=== PATIENT | female | born 1965 | race Caucasian/White ===

== ENCOUNTER 2022-02-26 07:21 | Day surgery (SDC) | payer OTHER ==
[2022-02-24 14:48] LABS: COVID AG,FIA SOURCE NASAL SWAB
[~2022-02-26] VITALS: Ht 154.9 cm; Wt 122.1 kg
[~2022-02-26 07:21] MED LIST: AMLO5TAB66 PO; ATOR40TA71 PO; CLOP75TA32 PO; FAMO20 PO; FURO80TA3 PO; GABA800T9 PO; INSU200I4 SQ; LEVO50TA11 PO; LISI10TA24 PO; METF-446 PO; METO-391 PO; SEMA2.4P SQ; SERT-440 PO; SODIUM CHLORIDE 0.9% 1,000 ML IV ONE
[2022-02-26 08:51] LABS: GLUCOMETER DEV NAME(LOC) SDS.; GLUCOSE,POINT OF CARE 73 MG/DL (70-110)
[2022-02-26] MEDS ORDERED: DEXTROSE 5%-LACTATED RINGERS 1,000 ML IV ONE (09:15)
[2022-02-26 10:21] LABS: GLUCOMETER DEV NAME(LOC) SDS.; GLUCOSE,POINT OF CARE 141 MG/DL (70-110)
[2022-02-26] MEDS ORDERED: PROPOFOL 1% 20 ML VIAL IVP ONE (12:00)
[2022-02-26] MEDS ORDERED: LIDOCAINE/PF 2% 5 ML VIAL IM ONE (12:00)
[2022-02-26] MEDS ORDERED: OXYGEN THERAPY IH SCH (20:00)
== END 2022-02-26 11:00 | disposition home or self-care (01) ==
LOC: SURGERY 07:21
PROVIDERS: ATTEND Specialist
DX: R19.5 Other fecal abnormalities (principal); E11.9 Type 2 diabetes mellitus without complications; I10 Essential (primary) hypertension; Z79.82 Long term (current) use of aspirin; Z86.010 Personal history of colon polyps; Z79.899 Other long term (current) drug therapy; Z20.822 Contact with and (suspected) exposure to COVID-19; Z88.8 Allergy status to other drugs, medicaments and biological substances; J45.909 Unspecified asthma, uncomplicated; Z86.73 Personal history of transient ischemic attack (TIA), and cerebral infarction without residual deficits; Z98.890 Other specified postprocedural states; K22.70 Barrett's esophagus without dysplasia; D50.9 Iron deficiency anemia, unspecified; Z90.49 Acquired absence of other specified parts of digestive tract; Z83.3 Family history of diabetes mellitus; Z80.0 Family history of malignant neoplasm of digestive organs
CPT/HCPCS: 45378; 87426; 82962; 93005; J2704; J3490; C9803